=== PATIENT | female | born 1960 | race African-American/Black ===

== ENCOUNTER → 2017-03-08 | Outpatient (CLI) | payer OTHER | END | disposition home or self-care (01) | LOC: MA 14:34 | PROC: BH00ZZZ Plain Radiography of Right Breast (ICD-10-PCS; principal; 2017-03-08) | DX: Z12.39 Encounter for other screening for malignant neoplasm of breast (principal) | CPT/HCPCS: G0206 ==

== ENCOUNTER → 2017-09-13 | Outpatient (CLI) | payer OTHER | END | disposition home or self-care (01) | LOC: MA 09-05 16:00 | PROC: BH00ZZZ Plain Radiography of Right Breast (ICD-10-PCS; principal; 2017-09-13) | DX: Z12.39 Encounter for other screening for malignant neoplasm of breast (principal) | CPT/HCPCS: G0206 ==

== ENCOUNTER → 2017-12-05 | Outpatient (CLI) | payer OTHER ==
[2017-12-05 12:05] LABS: BASOPHIL % 0.5 % (0-2); PLATELET COUNT 310 x10^3mcL (130-400); RED CELL DISTRIBUTION WIDTH 14.4 % (11.5-14.5)
[2017-12-05 12:27] LABS: ALBUMIN 3.8 g/dL (3.4-5.0); ALKALINE PHOSPHATASE 67 U/L (46-116); ALT/SGPT 27 U/L (14-59); AST/SGOT 17 U/L (15-37); BILIRUBIN TOTAL 0.8 mg/dL (0.20-1.00); CALCIUM 8.8 mg/dL (8.5-10.1); CARBON DIOXIDE 27.8 mmol/L (21-32); CHLORIDE SERUM 104 mmol/L (98-107); CHOLESTEROL 178 mg/dL (<200); CREATININE SERUM 0.8 mg/dL (0.6-1.0); GFR1 > 60 mL/min; GLUCOSE SERUM 115 mg/dL (74-106); POTASSIUM SERUM 4.1 mmol/L (3.5-5.1); SODIUM SERUM 141 mmol/L (136-145); TOTAL PROTEIN, SERUM 7.4 g/dL (6.4-8.2); TRIGLYCERIDES 80 mg/dL (<150)
[2017-12-05 12:29] LABS: CHOLESTEROL/HDL RATIO 2.4; HDL CHOLESTEROL 75 mg/dL (40-60)
[2017-12-05 12:37] LABS: FREE T4 1.12 ng/dL (0.76-1.46); FREE THYROXINE INDEX 3.4 ug/dL (1.4-4.5); T4(THYROXINE) 11.8 ug/dL (4.7-13.3)
[2017-12-05 13:08] LABS: ERYTHROCYTE SED RATE 11 mm/hr (0-30)
[2017-12-05 13:58] LABS: T3 TOTAL 0.93 ng/mL
== END | disposition home or self-care (01) ==
LOC: LB 11:28
PROVIDERS: Family Medicine
DX: M06.9 Rheumatoid arthritis, unspecified (principal); Z83.3 Family history of diabetes mellitus
CPT/HCPCS: 84439; 86431

== ENCOUNTER → 2018-01-20 | Outpatient (CLI) | payer OTHER ==
[2018-01-20 16:13] LABS: MAGNESIUM 1.6 mg/dL (1.8-2.4)
[2018-01-20 16:21] LABS: C REACTIVE PROTEIN < 0.2 mg/dL (<=0.9)
== END | disposition home or self-care (01) ==
LOC: LB 13:05
PROVIDERS: Family Medicine
DX: M19.90 Unspecified osteoarthritis, unspecified site (principal); M79.1 Myalgia
CPT/HCPCS: 82306; 86200; 86235

== ENCOUNTER 2018-02-19 17:01 | Inpatient (IN) | payer OTHER ==
[~2018-02-19] VITALS: Ht 162.6 cm; Wt 88.0 kg
[2018-02-19 17:49] VITALS: Ht 162.6 cm; Wt 88.0 kg
[2018-02-19 19:48] LABS: microscopic required? NO
[2018-02-19 20:07] LABS: urine erythrocyte NEGATIVE (NEGATIVE)
[2018-02-19 20:22] LABS: AMPHETAMINE QUAL UR NONE DETECTED (NEG <=1000)
[2018-02-19 20:29] LABS: BASOPHIL % 0.1 % (0-2); PLATELET COUNT 208 x10^3mcL (130-400); RED CELL DISTRIBUTION WIDTH 13.9 % (11.5-14.5)
[2018-02-19 20:35] LABS: CALCIUM 9.3 mg/dL (8.5-10.1); CARBON DIOXIDE 24.9 mmol/L (21-32); CHLORIDE SERUM 101 mmol/L (98-107); CREATININE SERUM 0.7 mg/dL (0.6-1.0); GFR1 > 60 mL/min; GLUCOSE SERUM 151 mg/dL (74-106); POTASSIUM SERUM 3.6 mmol/L (3.5-5.1); SODIUM SERUM 138 mmol/L (136-145)
[2018-02-19] MEDS ORDERED: GOOD SENSE OMEP20 MG PO (20:43)
[2018-02-19] MEDS ORDERED: DICLOFENAC SODI75 MG PO (20:43)
[2018-02-19] MEDS ORDERED: LIPI20 PO (20:44)
[2018-02-19] MEDS ORDERED: ESCITALOPRAM20 M1 PO (20:44)
[2018-02-19] MEDS ORDERED: METFORMIN500 M1 PO (20:44)
[2018-02-19] MEDS ORDERED: ESTRACE2 MG PO (20:44)
[2018-02-19] MEDS ORDERED: ZESTRIL20 MG PO (20:45)
[2018-02-19] MEDS ORDERED: NOR5 PO (20:45)
[2018-02-19] MEDS ORDERED: LANSOPRAZOLE30 M2 PO (20:46)
[2018-02-19 20:47] LABS: ALBUMIN 3.9 g/dL (3.4-5.0); ALKALINE PHOSPHATASE 63 U/L (46-116); ALT/SGPT 30 U/L (14-59); AMYLASE 40 U/L (25-115); AST/SGOT 21 U/L (15-37); BILIRUBIN TOTAL 0.77 mg/dL (0.20-1.00); CHOLESTEROL 135 mg/dL (<200); LIPASE 129 IU/L (73-393); TOTAL PROTEIN, SERUM 7.1 g/dL (6.4-8.2)
[2018-02-19 20:59] LABS: HDL CHOLESTEROL 65 mg/dL (40-60); T4(THYROXINE) 13.5 ug/dL (4.7-13.3)
[2018-02-19 21:40] LABS: MAGNESIUM 1.5 mg/dL (1.8-2.4); PHOSPHOROUS 3.2 mg/dL (2.5-4.9)
[2018-02-19 21:41] LABS: CHOLESTEROL/HDL RATIO 2.1
[2018-02-19] MEDS ORDERED: SYNTHROID0.125 MG PO (21:46)
[2018-02-19 21:50] LABS: FREE T4 1.57 ng/dL (0.76-1.46)
[2018-02-19] MEDS ORDERED: VIMOVO PO (21:50)
[2018-02-19 21:51] LABS: FREE THYROXINE INDEX 4.7 ug/dL (1.4-4.5); T4(THYROXINE) 13.5 ug/dL (4.7-13.3)
[2018-02-19 22:21] VITALS: BP 143/77
[2018-02-19 22:39] LABS: T3 TOTAL 0.93 ng/mL
[2018-02-20 04:00] LABS: CALCIUM 8.6 mg/dL (8.5-10.1); CARBON DIOXIDE 26.3 mmol/L (21-32); CHLORIDE SERUM 102 mmol/L (98-107); CREATININE SERUM 0.7 mg/dL (0.6-1.0); GFR1 > 60 mL/min; GLUCOSE SERUM 162 mg/dL (74-106); MAGNESIUM 1.8 mg/dL (1.8-2.4); PHOSPHOROUS 4.4 mg/dL (2.5-4.9); POTASSIUM SERUM 3.7 mmol/L (3.5-5.1); SODIUM SERUM 138 mmol/L (136-145)
[2018-02-20 04:37] LABS: BASOPHIL % 0.3 % (0-2); PLATELET COUNT 175 x10^3mcL (130-400); RED CELL DISTRIBUTION WIDTH 13.7 % (11.5-14.5)
[2018-02-20 06:18] VITALS: BP 118/53
[2018-02-20 09:28] VITALS: BP 141/72
[2018-02-20 13:19] VITALS: BP 132/70
[2018-02-20 17:22] VITALS: BP 116/57
[2018-02-20] MEDS ORDERED: SYN112 PO (17:40)
[2018-02-20 17:48] VITALS: BP 116/57
== END 2018-02-20 18:54 | disposition home or self-care (01) | DRG 391 ==
LOC: ED 17:01 → DU 19:56
PROVIDERS: Emergency Medicine; Family Medicine
DX: K21.9 Gastro-esophageal reflux disease without esophagitis (principal); N17.0 Acute kidney failure with tubular necrosis; I10 Essential (primary) hypertension; E78.00 Pure hypercholesterolemia, unspecified; E03.9 Hypothyroidism, unspecified; M19.90 Unspecified osteoarthritis, unspecified site; K57.90 Diverticulosis of intestine, part unspecified, without perforation or abscess without bleeding; G90.8 Other disorders of autonomic nervous system; E11.65 Type 2 diabetes mellitus with hyperglycemia; H66.92 Otitis media, unspecified, left ear; J02.9 Acute pharyngitis, unspecified; F32.9 Major depressive disorder, single episode, unspecified; E83.42 Hypomagnesemia; E78.5 Hyperlipidemia, unspecified; E05.00 Thyrotoxicosis with diffuse goiter without thyrotoxic crisis or storm; Z90.710 Acquired absence of both cervix and uterus; Z98.891 History of uterine scar from previous surgery; Z95.1 Presence of aortocoronary bypass graft; Z68.32 Body mass index [BMI] 32.0-32.9, adult; Z83.3 Family history of diabetes mellitus
CPT/HCPCS: 83880; 84439; J1956; J3475; J7030; Q0092; Q9967

== ENCOUNTER → 2018-04-03 | Outpatient (CLI) | payer OTHER ==
[~2018-04-03] MED LIST: DICLOFENAC SODI75 MG PO; ESCITALOPRAM20 M1 PO; ESTRACE2 MG PO; GOOD SENSE OMEP20 MG PO; LANSOPRAZOLE30 M2 PO; LIPI20 PO; METFORMIN500 M1 PO; NOR5 PO; SYN112 PO; SYNTHROID0.125 MG PO; VIMOVO PO; ZESTRIL20 MG PO
== END | disposition home or self-care (01) ==
LOC: MA 15:24
PROC: BH02ZZZ Plain Radiography of Bilateral Breasts (ICD-10-PCS; principal; 2018-04-03)
DX: R92.8 Other abnormal and inconclusive findings on diagnostic imaging of breast (principal)
CPT/HCPCS: 77067

== ENCOUNTER → 2019-11-20 | Outpatient (CLI) | payer OTHER ==
[2019-11-20 15:16] LABS: CHOLESTEROL/HDL RATIO 2.5
== END | disposition home or self-care (01) ==
LOC: MA 14:36
PROC: BH02ZZZ Plain Radiography of Bilateral Breasts (ICD-10-PCS; principal; 2019-11-20)
DX: E11.9 Type 2 diabetes mellitus without complications (principal); E78.5 Hyperlipidemia, unspecified; E03.9 Hypothyroidism, unspecified; Z12.31 Encounter for screening mammogram for malignant neoplasm of breast
CPT/HCPCS: 77067